=== PATIENT | male | born 1980 | race Caucasian/White ===

== ENCOUNTER 2018-08-10 15:50 | Emergency (ER) | payer OTHER ==
[~2018-08-10] VITALS: Ht 198.1 cm; Wt 124.7 kg
[2018-08-10] MEDS ORDERED: IBUPROFEN 800800 M1 PO (16:18)
[2018-08-10 16:35] LABS: ABSOLUTE NEUTROPHILS 14.9 thou/uL (1.4-8.2); BASOPHILS 0.7 % (0.0-2.0); EOSINOPHILS 2.8 % (0.0-3.0); HEMATOCRIT 46.6 % (42.0-52.0); HEMOGLOBIN 15.6 gm/dL (14.0-18.0); MCH 29.2 pg (26.0-34.0); MCHC 33.4 g/dL (28.0-37.0); MCV 87.4 fL (80.0-100.0); MONOCYTES 5.3 % (1.0-8.0); PLATELET COUNT 318 thou/uL (150-400); POLYS 75.2 % (36.0-66.0); RBC 5.34 mil/uL (4.50-6.00); RDW 13.1 % (10.5-14.5); WBC 19.8 thou/uL (4.0-11.0)
[2018-08-10 16:37] LABS: ANION GAP 6 mmol/L (7-16); BUN 19 mg/dL (7-18); CALCIUM 9.1 mg/dL (8.5-10.1); CHLORIDE 100 mmol/L (98-107); CO2 30 mmol/L (21-32); CREATININE 1.3 mg/dL (0.7-1.3); GLUCOSE 125 mg/dL (74-106); SODIUM 136 mmol/L (136-145)
[2018-08-10 16:46] LABS: TROPONIN-I <0.06 ng/mL (<0.06)
--- NOTE | 2018-08-10 19:08 | EKG ---
[place] [address] [facility] [place] [address] ELECTROCARDIOGRAM REPORT Name: MARIA R KERNS Room #: [id number] ������������������ Admission: 08/10/18 ������������������ Attend Phys: Discharge: ������������������ Date of : 80 Report #: [id number] ����������������������������������������������������������������� [id number] THIS REPORT FOR: //name// [facility] ED Test Date: 2018-08-10 Test Time: 16:39:43 Pat Name: MARIA R KERNS Department: Room: Gender: Clinical Trial Data Manager: TIM : 1980 Requested By: Gricelda Douglas Order Number: [id number] MD: Rajat Ortiz Measurements Intervals [place] Rate: 104 P: 8 DE: 153 QRS: 29 QRSD: 80 T: 51 QT: 316 QTc: 416 Interpretive Statements Sinus tachycardia Anteroseptal infarct, old Baseline wander in lead(s) V2 Nonspecific ST-T wave changes No previous ECG available for comparison Electronically Signed On 08-10-2018 19:08:18 CDT by Rajat Ortiz [email or web address] ��������������������������������������������� <ELECTRONICALLY SIGNED> ���������������������������������������� By: Rajat Ortiz MD ��������������������������������������������� 08/10/18 1908 1639 1639 Rajat Ortiz MD /THERESE
[2018-08-10] MEDS ORDERED: CLEOCIN HCL150 MG PO (19:09)
[2018-08-10] MEDS ORDERED: VENTOLIN HFA 1818 GM INH (19:09)
[2018-08-10] MEDS ORDERED: NORCO 7.5-3251 EACH PO (19:09)
[2018-08-10 19:19] VITALS: BP 124/77
== END 2018-08-10 19:20 | disposition home or self-care (01) ==
LOC: ER 15:50
PROVIDERS: Nurse Practitioner Family
DX: L03.211 Cellulitis of face (principal); J40 Bronchitis, not specified as acute or chronic; F17.200 Nicotine dependence, unspecified, uncomplicated